=== PATIENT | female | born 1995 | race American Indian/Alaskan Native ===

== ENCOUNTER 2018-02-01 12:46 | Emergency (ER) | payer SELFPAY ==
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
[2018-02-01 15:39] VITALS: BP 112/76
--- NOTE | 2018-02-01 15:40 | XRay Report ---
FINAL REPORT PROCEDURE: XR TIBIA FIBULA 2V LT TECHNIQUE: Left tibia and fibula, AP and lateral views HISTORY: Internal fixation placement/lt tib/fib/pain COMPARISON: No prior studies are available for comparison. FINDINGS: There is evidence of healed fractures of the tibia and fibula shafts. No acute fracture or joint dislocation is seen. No hardware is present. No cortical erosion. IMPRESSION: Healed tibia and fibula shaft fractures. No acute abnormality is identified
--- NOTE | 2018-02-01 15:42 | XRay Report ---
FINAL REPORT PROCEDURE: XR KNEE 1-2V RT TECHNIQUE: Right knee, AP and lateral views HISTORY: internal fixation placement/ rt knee pain COMPARISON: No prior studies are available for comparison. FINDINGS: There is patellar hardware present. No acute fracture or dislocation is seen. No cortical erosion. No joint effusion. IMPRESSION: Evidence of prior patellar internal fixation with hardware present. No acute abnormalities are radiographically apparent
--- NOTE | 2018-02-01 15:52 | XRay Report ---
FINAL REPORT PROCEDURE: XR ORBITS 4+V TECHNIQUE: Orbits complete, minimum of 4 views including PA, lateral, shallow obliques and Ahmadi projections. HISTORY: Internal fixation placement/lt eye/cheek pain COMPARISON: No prior studies are available for comparison. FINDINGS: There is hardware in the left orbital floor, left maxillary sinus wall and left zygomatic arch. No acute fracture is visible. There may be asymmetric increased opacification of the left maxillary sinus. IMPRESSION: Postsurgical changes. There may be left maxillary sinus opacification/sinus disease. Further evaluation with CT could be obtained.
== END 2018-02-01 15:38 | disposition home or self-care (01) ==
LOC: ED 12:46
DX: G89.29 Other chronic pain (principal); M25.561 Pain in right knee; M79.605 Pain in left leg; R51 Headache
CPT/HCPCS: 70200; 99283

== ENCOUNTER 2018-02-13 18:38 | Emergency (ER) | payer SELFPAY ==
[2018-02-13 19:13] VITALS: BP 116/78
== END 2018-02-13 23:13 | disposition left against medical advice (07) ==
LOC: ED 18:38
DX: M79.606 Pain in leg, unspecified (principal); Z53.21 Procedure and treatment not carried out due to patient leaving prior to being seen by health care provider